=== PATIENT | female | born 1930 | race African-American/Black ===

== ENCOUNTER 2018-04-18 20:33 | Observation (INO) ==
[2018-04-18 21:30] LABS: Baso % (Auto) 0.4 % (0.0-2.0); Eos # (Auto) 0.1 th/mm3 (0.0-0.4); Eos % (Auto) 1.7 % (0.0-4.0); Hematocrit 37.5 % (35.0-46.0); Hemoglobin 12.8 gm/dL (11.6-15.3); Lymph # (Auto) 0.9 th/mm3 (1.0-4.8); Lymph % (Auto) 14.2 % (9.0-44.0); Mean Corpuscular HGB Conc 34.1 % (32.0-36.0); Mean Corpuscular Hemoglobin 31.4 pg (27.0-34.0); Mean Corpuscular Volume 92.2 fL (80.0-100.0); Mean Platelet Volume 8.4 fL (7.0-11.0); Mono # (Auto) 0.7 th/mm3 (0.0-0.9); Neut # (Auto) 4.9 th/mm3 (1.8-7.7); Neut % (Auto) 73.7 % (16.0-70.0); Platelet Count 152 th/mm3 (150-450); Red Blood Count 4.06 mil/mm3 (4.00-5.30); Red Cell Distribution Width 13.2 % (11.6-17.2); White Blood Count 6.6 th/mm3 (4.0-11.0)
--- NOTE | 2018-04-18 21:30 | ED ---
HPI General Chief complaint: Weakness Stated complaint: weakness Time Seen by Provider: 04/18/18 20:59 History of Present Illness HPI narrative: This is an 87-year-old female who presents via EMS for evaluation after fall. EMS reports that the patient was sitting in her kitchen in a chair when she slid out of the chair and fell to the ground. She then vomited. Complaining of generalized weakness to EMS. No focal neurologic complaints. My examination the patient reports that she was sitting in the chair eating when she slid out of the chair and she believes that she lost consciousness. She is complaining of intermittent lower abdominal pain for the past few weeks. At one point she said that she had chest pain but later on she is denying any chest pain. She is a very difficult historian. Her daughter who lives with her arrived shortly after the patient did and she reports that the patient has a history of dementia, diabetes and hypertension. She reports that she fell out of bed last night as well. She is otherwise in her usual state of health. Not aware of any recent illnesses or medication changes. Uncertain who her primary care physician is. Related Data Home Medications Medication Instructions Recorded Confirmed amlodipine 10 mg PO DAILY 04/18/18 04/20/18 aspirin 81 mg PO DAILY 04/18/18 04/20/18 hydrocodone-acetaminophen 7.5 mg PO Q4H PRN 04/18/18 04/20/18 lovastatin 30 mg PO DAILY 04/18/18 04/20/18 omeprazole 20 mg PO DAILY 04/18/18 04/20/18 Previous Rx's Medication Instructions Recorded hydralazine 10 mg PO TID 30 Days #90 tab 04/21/18 insulin glargine [Lantus U-100 5 units SUBCUT DAILY ml 04/21/18 Insulin] levothyroxine [Synthroid] 50 mcg PO 4XW #30 tab 04/21/18 levothyroxine [Synthroid] 50 mcg PO Groves tab 04/21/18 levothyroxine [Synthroid] 75 mcg PO TuThSa 30 Days tab 04/21/18 metoprolol tartrate 12.5 mg PO BID 30 Days #30 tab 04/21/18 Allergies Allergy/AdvReac Type Severity Reaction Status Date / Time No Known Allergies Allergy Severe Uncoded 09/03/03 21:46 Review of Systems ROS: all other systems reviewed are negative [facility] Family History Family History Other Family history unknown Social History Social History Substance History: No History of Abuse Second Hand Smoke Exposure: No Smoking Status: Never smoker Tobacco Type: Cigarettes How Often Do You Have a Drink Containing Alcohol: Never Recent Travel in [facility] within the Last 8 Weeks: No Recent Out of Country Travel within the Last 8 Weeks: No Exam Narrative Exam Narrative: GENERAL: Well-developed well-nourished female who is awake and alert and oriented to person and place but not year. SKIN: Warm and dry. HEAD: Atraumatic. Normocephalic. EYES: Pupils equal and round. No scleral icterus. No injection or drainage. ENT: No nasal bleeding or discharge. Mucous membranes pink and moist. NECK: Trachea midline. No JVD. CARDIOVASCULAR: Regular rate and rhythm. No murmur appreciated. RESPIRATORY: No accessory muscle use. Clear to auscultation. Breath sounds equal bilaterally. GASTROINTESTINAL: Abdomen soft, mild tenderness to palpation in the lower quadrants without guarding. MUSCULOSKELETAL: No obvious deformities. No clubbing. No cyanosis. No edema. Full range of motion of the extremities. NEUROLOGICAL: Awake and alert. No obvious cranial nerve deficits. Motor grossly within normal limits. Normal speech. Course Initial Documented Vital Signs Temperature 98.3 F 04/18/18 20:41 Pulse Rate 45 L 04/18/18 20:41 Respiratory Rate 16 04/18/18 20:41 Blood Pressure 148/68 H 04/18/18 20:41 Pulse Oximetry 98 04/18/18 20:41 Last Documented Vital Signs Temperature 98.3 F 04/21/18 12:00 Pulse Rate 64 04/21/18 12:00 Respiratory Rate 16 04/21/18 12:00 Blood Pressure 149/69 H 04/21/18 12:00 Pulse Oximetry 100 04/21/18 12:00 Critical Care Time Critical Care Time: Yes Total Critical Care Time: 30 Attestation: Aggregate critical care time was 30 minutes. Time to perform other separately billable procedures was not included in the critical care time. My time did not include minutes spent treating any other patients simultaneously or on activities that did not directly contribute to the patient's treatment. The services I provided to this patient were to treat and/or prevent clinically significant deterioration that could result in: ACS, heparin bolus and drip I provided critical care services requiring my management, as noted below: Chart data review, documentation time, medication orders and management, vital sign assessments/reviewing monitor data, ordering and reviewing lab tests, ordering and interpreting/reviewing x-rays and diagnostic studies, care of the patient and discussion of the patient with the admitting physicians. Medical Decision Making NICANOR Attestation NICANOR supervised visit: Yes Attestation: 87-year-old female was brought to the emergency room by EMS after her daughter called 911. As per the daughter patient passed out in the kitchen. She heard a loud thud and went and saw that her mother was on the floor and was vomiting. She appeared to be dazed. That is when she decided to call 911. Daughter says that something similar happened 2 nights prior when she found her mother on the living room floor but at that time she refused to go to the emergency room. She also has noticed that her mother appears to be more sleepy than usual for the past 2 days. Tonight when EMS arrived the daughter noticed that her heart rate was very low. Normally her heart rate is in the 70s. Patient does not complain of any chest pain. My PA is seeing the patient and I am supervising him. Blood test results are back and troponin is elevated. EKG is suggestive of sinus bradycardia. I let the daughter know that patient will require admission and cardiology consultation. She is agreeable with that plan. Patient may require a pacemaker if this is secondary to a sick sinus syndrome or symptomatic bradycardia. The elevated troponin needs to be investigated further as well for ACS. Currently awaiting for CT scan of the head and abdomen and pelvis to be done and resulted. If CT of the head is negative patient will require to be started on heparin bolus and drip. 11:[address] scan of the brain is negative for any intracranial bleed. I started on heparin bolus and drip for the elevated troponin. Awaiting for the hospitalist to call back. [facility] Narrative Medical decision making narrative: The patient was placed on ECG monitoring and pulse oximetry. Twelve-lead EKG was obtained revealing sinus bradycardia with a rate of 45, left axis deviation is noted. There are no acute ST elevations. Lab work, chest x-ray, CT brain and abdomen and pelvis have been ordered. CBC reveals no significant abnormalities. CMP reveals a GFR of 40, BUN 30, creatinine 1.47, glucose 170 CK-MB 3.7, troponin 0 0.21 TSH 6.6 Chest x-ray reveals elevation of the right hemidiaphragm, no acute pulmonary infiltrate or pulmonary vascular congestion. At the end of my shift the patient was signed out to Dr. Taveras pending CT imaging, ultimately she will require admission. Medical Screen Exam Complete: Yes Emergency Medical Condition: Yes Differential Diagnosis Differential Diagnosis: Syncope, arrhythmia, heart block, SSS, electrolyte abnormality, hypoglycemia, dehydration, UTI, orthostatic hypotension Lab Data Result diagrams: 04/20/18 07:15 04/21/18 05:19 Lab Results 04/18/18 04/18/18 04/18/18 Range/Units 21:10 21:10 21:10 WBC 6.6 (4.0-11.0) th/mm3 RBC 4.06 (4.00-5.30) mil/mm3 Hgb 12.8 (11.6-15.3) gm/dL Hct 37.5 (35.0-46.0) % MCV 92.2 (80.0-100.0) fL MCH 31.4 (27.0-34.0) pg MCHC 34.1 (32.0-36.0) % RDW 13.2 (11.6-17.2) % Plt Count 152 (150-450) th/mm3 MPV 8.4 (7.0-11.0) fL Neut % (Auto) 73.7 H (16.0-70.0) % Lymph % (Auto) 14.2 (9.0-44.0) % Cooper % (Auto) 10.0 H (0.0-8.0) % Eos % (Auto) 1.7 (0.0-4.0) % Baso % (Auto) 0.4 (0.0-2.0) % Neut # (Auto) 4.9 (1.8-7.7) th/mm3 Lymph # (Auto) 0.9 L (1.0-4.8) th/mm3 Cooper # (Auto) 0.7 (0.0-0.9) th/mm3 Eos # (Auto) 0.1 (0.0-0.4) th/mm3 Baso # (Auto) 0.0 (0.0-0.2) th/mm3 WBC Differential . Differential Comment Auto diff final PT 10.9 (9.8-11.6) sec INR 1.1 Ratio APTT 22.7 L (23.4-31.7) sec Sodium 141 (136-145) meq/L Potassium 4.1 (3.5-5.1) meq/L Chloride 103 (98-107) meq/L Carbon Dioxide 29.3 (21.0-32.0) meq/L Anion Gap 9 (5-15) meq/L BUN 30 H (7-18) mg/dL Creatinine 1.47 H (0.50-1.00) mg/dL Estimated GFR 40 L (>89) mL/min POC Glucose (68-110) mg/dl Random Glucose 170 H (74-106) mg/dL Calcium 9.2 (8.5-10.1) mg/dL Magnesium 2.1 (1.5-2.5) mg/dL Total Bilirubin 0.3 (0.2-1.0) mg/dL AST 23 (15-37) U/L ALT 25 (10-53) U/L Alkaline Phosphatase 54 (45-117) U/L Total Creatine Kinase 150 (26-192) U/L CK-MB (CK-2) 3.7 H (0.5-3.6) ng/mL Troponin I 0.21 H (0.02-0.05) ng/mL Total Protein 7.1 (6.4-8.2) g/dL Albumin 3.3 L (3.4-5.0) g/dL TSH 6.630 H (0.358-3.740) uIU/mL Urine Color (Yellw/Straw) Urine Clarity (Clear) Urine pH (5.0-8.5) Ur Specific Dillard (1.002-1.035) Urine Protein (Neg-Trace) mg/dL Urine Glucose (UA) (Negative) mg/dL Urine Ketones (Negative) mg/dL Urine Occult Blood (Negative) Urine Nitrate (Negative) Urine Bilirubin (Negative) Urine Urobilinogen (Less than 2) mg/dL Ur Leukocyte Esterase (Negative) Urine RBC (0-3) /hpf Urine WBC (0-5) /hpf Ur Squamous Epith Cells (0-5) /hpf Urine Bacteria (None) /hpf Hyaline Casts (0-3) /lpf Urine Mucus (Occasional) /lpf Micro UA Comment Ur Microscopic Review Urine Culture Comments 04/18/18 04/18/18 04/18/18 Range/Units 21:10 21:10 22:15 WBC (4.0-11.0) th/mm3 RBC (4.00-5.30) mil/mm3 Hgb (11.6-15.3) gm/dL Hct (35.0-46.0) % MCV (80.0-100.0) fL MCH (27.0-34.0) pg MCHC (32.0-36.0) % RDW (11.6-17.2) % Plt Count (150-450) th/mm3 MPV (7.0-11.0) fL Neut % (Auto) (16.0-70.0) % Lymph % (Auto) (9.0-44.0) % Cooper % (Auto) (0.0-8.0) % Eos % (Auto) (0.0-4.0) % Baso % (Auto) (0.0-2.0) % Neut # (Auto) (1.8-7.7) th/mm3 Lymph # (Auto) (1.0-4.8) th/mm3 Cooper # (Auto) (0.0-0.9) th/mm3 Eos # (Auto) (0.0-0.4) th/mm3 Baso # (Auto) (0.0-0.2) th/mm3 WBC Differential Differential Comment PT (9.8-11.6) sec INR Ratio APTT (23.4-31.7) sec Sodium (136-145) meq/L Potassium (3.5-5.1) meq/L Chloride (98-107) meq/L Carbon Dioxide (21.0-32.0) meq/L Anion Gap (5-15) meq/L BUN (7-18) mg/dL Creatinine (0.50-1.00) mg/dL Estimated GFR (>89) mL/min POC Glucose (68-110) mg/dl Random Glucose (74-106) mg/dL Calcium (8.5-10.1) mg/dL Magnesium (1.5-2.5) mg/dL Total Bilirubin (0.2-1.0) mg/dL AST (15-37) U/L ALT (10-53) U/L Alkaline Phosphatase (45-117) U/L Total Creatine Kinase Cancelled (26-192) U/L CK-MB (CK-2) (0.5-3.6) ng/mL Troponin I (0.02-0.05) ng/mL Total Protein (6.4-8.2) g/dL Albumin (3.4-5.0) g/dL TSH Cancelled (0.358-3.740) uIU/mL Urine Color Yellow (Yellw/Straw) Urine Clarity Hazy H (Clear) Urine pH 5.0 (5.0-8.5) Ur Specific Dillard 1.021 (1.002-1.035) Urine Protein 30 H (Neg-Trace) mg/dL Urine Glucose (UA) 50 (Negative) mg/dL Urine Ketones Negative (Negative) mg/dL Urine Occult Blood Negative (Negative) Urine Nitrate Negative (Negative) Urine Bilirubin Negative (Negative) Urine Urobilinogen 2.0 H (Less than 2) mg/dL Ur Leukocyte Esterase Trace H (Negative) Urine RBC 1 (0-3) /hpf Urine WBC 11 H (0-5) /hpf Ur Squamous Epith Cells 6 (0-5) /hpf Urine Bacteria Rare H (None) /hpf Hyaline Casts 20 (0-3) /lpf Urine Mucus Few H (Occasional) /lpf Micro UA Comment Culture indicated Ur Microscopic Review Not Reportable Urine Culture Comments Culture indicated 04/18/18 04/19/18 04/19/18 Range/Units 23:20 03:45 03:45 WBC 7.0 (4.0-11.0) th/mm3 RBC 4.03 (4.00-5.30) mil/mm3 Hgb 12.7 (11.6-15.3) gm/dL Hct 37.3 (35.0-46.0) % MCV 92.6 (80.0-100.0) fL MCH 31.6 (27.0-34.0) pg MCHC 34.1 (32.0-36.0) % RDW 13.1 (11.6-17.2) % Plt Count 159 (150-450) th/mm3 MPV 8.7 (7.0-11.0) fL Neut % (Auto) (16.0-70.0) % Lymph % (Auto) (9.0-44.0) % Cooper % (Auto) (0.0-8.0) % Eos % (Auto) (0.0-4.0) % Baso % (Auto) (0.0-2.0) % Neut # (Auto) (1.8-7.7) th/mm3 Lymph # (Auto) (1.0-4.8) th/mm3 Cooper # (Auto) (0.0-0.9) th/mm3 Eos # (Auto) (0.0-0.4) th/mm3 Baso # (Auto) (0.0-0.2) th/mm3 WBC Differential Differential Comment PT 10.7 (9.8-11.6) sec INR 1.1 Ratio APTT 18.7 L 43.4 H D (23.4-31.7) sec Sodium (136-145) meq/L Potassium (3.5-5.1) meq/L Chloride (98-107) meq/L Carbon Dioxide (21.0-32.0) meq/L Anion Gap (5-15) meq/L BUN (7-18) mg/dL Creatinine (0.50-1.00) mg/dL Estimated GFR (>89) mL/min POC Glucose (68-110) mg/dl Random Glucose (74-106) mg/dL Calcium (8.5-10.1) mg/dL Magnesium (1.5-2.5) mg/dL Total Bilirubin (0.2-1.0) mg/dL AST (15-37) U/L ALT (10-53) U/L Alkaline Phosphatase (45-117) U/L Total Creatine Kinase (26-192) U/L CK-MB (CK-2) (0.5-3.6) ng/mL Troponin I (0.02-0.05) ng/mL Total Protein (6.4-8.2) g/dL Albumin (3.4-5.0) g/dL TSH (0.358-3.740) uIU/mL Urine Color (Yellw/Straw) Urine Clarity (Clear) Urine pH (5.0-8.5) Ur Specific Dillard (1.002-1.035) Urine Protein (Neg-Trace) mg/dL Urine Glucose (UA) (Negative) mg/dL Urine Ketones (Negative) mg/dL Urine Occult Blood (Negative) Urine Nitrate (Negative) Urine Bilirubin (Negative) Urine Urobilinogen (Less than 2) mg/dL Ur Leukocyte Esterase (Negative) Urine RBC (0-3) /hpf Urine WBC (0-5) /hpf Ur Squamous Epith Cells (0-5) /hpf Urine Bacteria (None) /hpf Hyaline Casts (0-3) /lpf Urine Mucus (Occasional) /lpf Micro UA Comment Ur Microscopic Review Urine Culture Comments 04/19/18 04/19/18 04/19/18 Range/Units 03:45 08:03 08:19 WBC (4.0-11.0) th/mm3 RBC (4.00-5.30) mil/mm3 Hgb (11.6-15.3) gm/dL Hct (35.0-46.0) % MCV (80.0-100.0) fL MCH (27.0-34.0) pg MCHC (32.0-36.0) % RDW (11.6-17.2) % Plt Count (150-450) th/mm3 MPV (7.0-11.0) fL Neut % (Auto) (16.0-70.0) % Lymph % (Auto) (9.0-44.0) % Cooper % (Auto) (0.0-8.0) % Eos % (Auto) (0.0-4.0) % Baso % (Auto) (0.0-2.0) % Neut # (Auto) (1.8-7.7) th/mm3 Lymph # (Auto) (1.0-4.8) th/mm3 Cooper # (Auto) (0.0-0.9) th/mm3 Eos # (Auto) (0.0-0.4) th/mm3 Baso # (Auto) (0.0-0.2) th/mm3 WBC Differential Differential Comment PT (9.8-11.6) sec INR Ratio APTT (23.4-31.7) sec Sodium (136-145) meq/L Potassium (3.5-5.1) meq/L Chloride (98-107) meq/L Carbon Dioxide (21.0-32.0) meq/L Anion Gap (5-15) meq/L BUN (7-18) mg/dL Creatinine (0.50-1.00) mg/dL Estimated GFR (>89) mL/min POC Glucose 63 L 59 L (68-110) mg/dl Random Glucose (74-106) mg/dL Calcium (8.5-10.1) mg/dL Magnesium (1.5-2.5) mg/dL Total Bilirubin (0.2-1.0) mg/dL AST (15-37) U/L ALT (10-53) U/L Alkaline Phosphatase (45-117) U/L Total Creatine Kinase 154 (26-192) U/L CK-MB (CK-2) 3.4 (0.5-3.6) ng/mL Troponin I 0.20 H (0.02-0.05) ng/mL Total Protein (6.4-8.2) g/dL Albumin (3.4-5.0) g/dL TSH (0.358-3.740) uIU/mL Urine Color (Yellw/Straw) Urine Clarity (Clear) Urine pH (5.0-8.5) Ur Specific Dillard (1.002-1.035) Urine Protein (Neg-Trace) mg/dL Urine Glucose (UA) (Negative) mg/dL Urine Ketones (Negative) mg/dL Urine Occult Blood (Negative) Urine Nitrate (Negative) Urine Bilirubin (Negative) Urine Urobilinogen (Less than 2) mg/dL Ur Leukocyte Esterase (Negative) Urine RBC (0-3) /hpf Urine WBC (0-5) /hpf Ur Squamous Epith Cells (0-5) /hpf Urine Bacteria (None) /hpf Hyaline Casts (0-3) /lpf Urine Mucus (Occasional) /lpf Micro UA Comment Ur Microscopic Review Urine Culture Comments 04/19/18 04/19/18 04/19/18 Range/Units 09:47 10:49 12:43 WBC (4.0-11.0) th/mm3 RBC (4.00-5.30) mil/mm3 Hgb (11.6-15.3) gm/dL Hct (35.0-46.0) % MCV (80.0-100.0) fL MCH (27.0-34.0) pg MCHC (32.0-36.0) % RDW (11.6-17.2) % Plt Count (150-450) th/mm3 MPV (7.0-11.0) fL Neut % (Auto) (16.0-70.0) % Lymph % (Auto) (9.0-44.0) % Cooper % (Auto) (0.0-8.0) % Eos % (Auto) (0.0-4.0) % Baso % (Auto) (0.0-2.0) % Neut # (Auto) (1.8-7.7) th/mm3 Lymph # (Auto) (1.0-4.8) th/mm3 Cooper # (Auto) (0.0-0.9) th/mm3 Eos # (Auto) (0.0-0.4) th/mm3 Baso # (Auto) (0.0-0.2) th/mm3 WBC Differential Differential Comment PT (9.8-11.6) sec INR Ratio APTT (23.4-31.7) sec Sodium (136-145) meq/L Potassium (3.5-5.1) meq/L Chloride (98-107) meq/L Carbon Dioxide (21.0-32.0) meq/L Anion Gap (5-15) meq/L BUN (7-18) mg/dL Creatinine (0.50-1.00) mg/dL Estimated GFR (>89) mL/min POC Glucose 112 H 152 H (68-110) mg/dl Random Glucose (74-106) mg/dL Calcium (8.5-10.1) mg/dL Magnesium (1.5-2.5) mg/dL Total Bilirubin (0.2-1.0) mg/dL AST (15-37) U/L ALT (10-53) U/L Alkaline Phosphatase (45-117) U/L Total Creatine Kinase 163 (26-192) U/L CK-MB (CK-2) 3.5 (0.5-3.6) ng/mL Troponin I 0.20 H (0.02-0.05) ng/mL Total Protein (6.4-8.2) g/dL Albumin (3.4-5.0) g/dL TSH (0.358-3.740) uIU/mL Urine Color (Yellw/Straw) Urine Clarity (Clear) Urine pH (5.0-8.5) Ur Specific Dillard (1.002-1.035) Urine Protein (Neg-Trace) mg/dL Urine Glucose (UA) (Negative) mg/dL Urine Ketones (Negative) mg/dL Urine Occult Blood (Negative) Urine Nitrate (Negative) Urine Bilirubin (Negative) Urine Urobilinogen (Less than 2) mg/dL Ur Leukocyte Esterase (Negative) Urine RBC (0-3) /hpf Urine WBC (0-5) /hpf Ur Squamous Epith Cells (0-5) /hpf Urine Bacteria (None) /hpf Hyaline Casts (0-3) /lpf Urine Mucus (Occasional) /lpf Micro UA Comment Ur Microscopic Review Urine Culture Comments 04/19/18 04/19/18 04/19/18 Range/Units 13:18 17:07 21:54 WBC (4.0-11.0) th/mm3 RBC (4.00-5.30) mil/mm3 Hgb (11.6-15.3) gm/dL Hct (35.0-46.0) % MCV (80.0-100.0) fL MCH (27.0-34.0) pg MCHC (32.0-36.0) % RDW (11.6-17.2) % Plt Count (150-450) th/mm3 MPV (7.0-11.0) fL Neut % (Auto) (16.0-70.0) % Lymph % (Auto) (9.0-44.0) % Cooper % (Auto) (0.0-8.0) % Eos % (Auto) (0.0-4.0) % Baso % (Auto) (0.0-2.0) % Neut # (Auto) (1.8-7.7) th/mm3 Lymph # (Auto) (1.0-4.8) th/mm3 Cooper # (Auto) (0.0-0.9) th/mm3 Eos # (Auto) (0.0-0.4) th/mm3 Baso # (Auto) (0.0-0.2) th/mm3 WBC Differential Differential Comment PT (9.8-11.6) sec INR Ratio APTT 22.9 L D (23.4-31.7) sec Sodium (136-145) meq/L Potassium (3.5-5.1) meq/L Chloride (98-107) meq/L Carbon Dioxide (21.0-32.0) meq/L Anion Gap (5-15) meq/L BUN (7-18) mg/dL Creatinine (0.50-1.00) mg/dL Estimated GFR (>89) mL/min POC Glucose 215 H 147 H (68-110) mg/dl Random Glucose (74-106) mg/dL Calcium (8.5-10.1) mg/dL Magnesium (1.5-2.5) mg/dL Total Bilirubin (0.2-1.0) mg/dL AST (15-37) U/L ALT (10-53) U/L Alkaline Phosphatase (45-117) U/L Total Creatine Kinase (26-192) U/L CK-MB (CK-2) (0.5-3.6) ng/mL Troponin I (0.02-0.05) ng/mL Total Protein (6.4-8.2) g/dL Albumin (3.4-5.0) g/dL TSH (0.358-3.740) uIU/mL Urine Color (Yellw/Straw) Urine Clarity (Clear) Urine pH (5.0-8.5) Ur Specific Dillard (1.002-1.035) Urine Protein (Neg-Trace) mg/dL Urine Glucose (UA) (Negative) mg/dL Urine Ketones (Negative) mg/dL Urine Occult Blood (Negative) Urine Nitrate (Negative) Urine Bilirubin (Negative) Urine Urobilinogen (Less than 2) mg/dL Ur Leukocyte Esterase (Negative) Urine RBC (0-3) /hpf Urine WBC (0-5) /hpf Ur Squamous Epith Cells (0-5) /hpf Urine Bacteria (None) /hpf Hyaline Casts (0-3) /lpf Urine Mucus (Occasional) /lpf Micro UA Comment Ur Microscopic Review Urine Culture Comments 04/20/18 04/20/18 04/20/18 Range/Units 07:15 07:15 08:47 WBC 6.6 (4.0-11.0) th/mm3 RBC 4.19 (4.00-5.30) mil/mm3 Hgb 13.3 (11.6-15.3) gm/dL Hct 38.9 (35.0-46.0) % MCV 92.8 (80.0-100.0) fL MCH 31.8 (27.0-34.0) pg MCHC 34.3 (32.0-36.0) % RDW 13.3 (11.6-17.2) % Plt Count 188 (150-450) th/mm3 MPV 8.3 (7.0-11.0) fL Neut % (Auto) 68.5 (16.0-70.0) % Lymph % (Auto) 17.1 (9.0-44.0) % Cooper % (Auto) 12.5 H (0.0-8.0) % Eos % (Auto) 1.6 (0.0-4.0) % Baso % (Auto) 0.3 (0.0-2.0) % Neut # (Auto) 4.5 (1.8-7.7) th/mm3 Lymph # (Auto) 1.1 (1.0-4.8) th/mm3 Cooper # (Auto) 0.8 (0.0-0.9) th/mm3 Eos # (Auto) 0.1 (0.0-0.4) th/mm3 Baso # (Auto) 0.0 (0.0-0.2) th/mm3 WBC Differential . Differential Comment Auto diff final PT (9.8-11.6) sec INR Ratio APTT (23.4-31.7) sec Sodium 135 L (136-145) meq/L Potassium 4.3 (3.5-5.1) meq/L Chloride 100 (98-107) meq/L Carbon Dioxide 27.8 (21.0-32.0) meq/L Anion Gap 7 (5-15) meq/L BUN 32 H (7-18) mg/dL Creatinine 1.75 H (0.50-1.00) mg/dL Estimated GFR 33 L (>89) mL/min POC Glucose 236 H (68-110) mg/dl Random Glucose 260 H (74-106) mg/dL Calcium 9.4 (8.5-10.1) mg/dL Magnesium (1.5-2.5) mg/dL Total Bilirubin (0.2-1.0) mg/dL AST (15-37) U/L ALT (10-53) U/L Alkaline Phosphatase (45-117) U/L Total Creatine Kinase (26-192) U/L CK-MB (CK-2) (0.5-3.6) ng/mL Troponin I (0.02-0.05) ng/mL Total Protein (6.4-8.2) g/dL Albumin (3.4-5.0) g/dL TSH (0.358-3.740) uIU/mL Urine Color (Yellw/Straw) Urine Clarity (Clear) Urine pH (5.0-8.5) Ur Specific Dillard (1.002-1.035) Urine Protein (Neg-Trace) mg/dL Urine Glucose (UA) (Negative) mg/dL Urine Ketones (Negative) mg/dL Urine Occult Blood (Negative) Urine Nitrate (Negative) Urine Bilirubin (Negative) Urine Urobilinogen (Less than 2) mg/dL Ur Leukocyte Esterase (Negative) Urine RBC (0-3) /hpf Urine WBC (0-5) /hpf Ur Squamous Epith Cells (0-5) /hpf Urine Bacteria (None) /hpf Hyaline Casts (0-3) /lpf Urine Mucus (Occasional) /lpf Micro UA Comment Ur Microscopic Review Urine Culture Comments 04/20/18 04/20/18 04/20/18 Range/Units 12:52 16:56 20:45 WBC (4.0-11.0) th/mm3 RBC (4.00-5.30) mil/mm3 Hgb (11.6-15.3) gm/dL Hct (35.0-46.0) % MCV (80.0-100.0) fL MCH (27.0-34.0) pg MCHC (32.0-36.0) % RDW (11.6-17.2) % Plt Count (150-450) th/mm3 MPV (7.0-11.0) fL Neut % (Auto) (16.0-70.0) % Lymph % (Auto) (9.0-44.0) % Cooper % (Auto) (0.0-8.0) % Eos % (Auto) (0.0-4.0) % Baso % (Auto) (0.0-2.0) % Neut # (Auto) (1.8-7.7) th/mm3 Lymph # (Auto) (1.0-4.8) th/mm3 Cooper # (Auto) (0.0-0.9) th/mm3 Eos # (Auto) (0.0-0.4) th/mm3 Baso # (Auto) (0.0-0.2) th/mm3 WBC Differential Differential Comment PT (9.8-11.6) sec INR Ratio APTT (23.4-31.7) sec Sodium (136-145) meq/L Potassium (3.5-5.1) meq/L Chloride (98-107) meq/L Carbon Dioxide (21.0-32.0) meq/L Anion Gap (5-15) meq/L BUN (7-18) mg/dL Creatinine (0.50-1.00) mg/dL Estimated GFR (>89) mL/min POC Glucose 174 H 184 H 148 H (68-110) mg/dl Random Glucose (74-106) mg/dL Calcium (8.5-10.1) mg/dL Magnesium (1.5-2.5) mg/dL Total Bilirubin (0.2-1.0) mg/dL AST (15-37) U/L ALT (10-53) U/L Alkaline Phosphatase (45-117) U/L Total Creatine Kinase (26-192) U/L CK-MB (CK-2) (0.5-3.6) ng/mL Troponin I (0.02-0.05) ng/mL Total Protein (6.4-8.2) g/dL Albumin (3.4-5.0) g/dL TSH (0.358-3.740) uIU/mL Urine Color (Yellw/Straw) Urine Clarity (Clear) Urine pH (5.0-8.5) Ur Specific Dillard (1.002-1.035) Urine Protein (Neg-Trace) mg/dL Urine Glucose (UA) (Negative) mg/dL Urine Ketones (Negative) mg/dL Urine Occult Blood (Negative) Urine Nitrate (Negative) Urine Bilirubin (Negative) Urine Urobilinogen (Less than 2) mg/dL Ur Leukocyte Esterase (Negative) Urine RBC (0-3) /hpf Urine WBC (0-5) /hpf Ur Squamous Epith Cells (0-5) /hpf Urine Bacteria (None) /hpf Hyaline Casts (0-3) /lpf Urine Mucus (Occasional) /lpf Micro UA Comment Ur Microscopic Review Urine Culture Comments 04/21/18 04/21/18 04/21/18 Range/Units 03:06 05:19 08:01 WBC (4.0-11.0) th/mm3 RBC (4.00-5.30) mil/mm3 Hgb (11.6-15.3) gm/dL Hct (35.0-46.0) % MCV (80.0-100.0) fL MCH (27.0-34.0) pg MCHC (32.0-36.0) % RDW (11.6-17.2) % Plt Count (150-450) th/mm3 MPV (7.0-11.0) fL Neut % (Auto) (16.0-70.0) % Lymph % (Auto) (9.0-44.0) % Cooper % (Auto) (0.0-8.0) % Eos % (Auto) (0.0-4.0) % Baso % (Auto) (0.0-2.0) % Neut # (Auto) (1.8-7.7) th/mm3 Lymph # (Auto) (1.0-4.8) th/mm3 Cooper # (Auto) (0.0-0.9) th/mm3 Eos # (Auto) (0.0-0.4) th/mm3 Baso # (Auto) (0.0-0.2) th/mm3 WBC Differential Differential Comment PT (9.8-11.6) sec INR Ratio APTT (23.4-31.7) sec Sodium 141 (136-145) meq/L Potassium 4.5 (3.5-5.1) meq/L Chloride 106 (98-107) meq/L Carbon Dioxide 28.6 (21.0-32.0) meq/L Anion Gap 6 (5-15) meq/L BUN 27 H (7-18) mg/dL Creatinine 1.20 H (0.50-1.00) mg/dL Estimated GFR 51 L (>89) mL/min POC Glucose 204 H 156 H (68-110) mg/dl Random Glucose 197 H (74-106) mg/dL Calcium 8.9 (8.5-10.1) mg/dL Magnesium (1.5-2.5) mg/dL Total Bilirubin (0.2-1.0) mg/dL AST (15-37) U/L ALT (10-53) U/L Alkaline Phosphatase (45-117) U/L Total Creatine Kinase (26-192) U/L CK-MB (CK-2) (0.5-3.6) ng/mL Troponin I (0.02-0.05) ng/mL Total Protein (6.4-8.2) g/dL Albumin (3.4-5.0) g/dL TSH (0.358-3.740) uIU/mL Urine Color (Yellw/Straw) Urine Clarity (Clear) Urine pH (5.0-8.5) Ur Specific Dillard (1.002-1.035) Urine Protein (Neg-Trace) mg/dL Urine Glucose (UA) (Negative) mg/dL Urine Ketones (Negative) mg/dL Urine Occult Blood (Negative) Urine Nitrate (Negative) Urine Bilirubin (Negative) Urine Urobilinogen (Less than 2) mg/dL Ur Leukocyte Esterase (Negative) Urine RBC (0-3) /hpf Urine WBC (0-5) /hpf Ur Squamous Epith Cells (0-5) /hpf Urine Bacteria (None) /hpf Hyaline Casts (0-3) /lpf Urine Mucus (Occasional) /lpf Micro UA Comment Ur Microscopic Review Urine Culture Comments 04/21/18 Range/Units 11:59 WBC (4.0-11.0) th/mm3 RBC (4.00-5.30) mil/mm3 Hgb (11.6-15.3) gm/dL Hct (35.0-46.0) % MCV (80.0-100.0) fL MCH (27.0-34.0) pg MCHC (32.0-36.0) % RDW (11.6-17.2) % Plt Count (150-450) th/mm3 MPV (7.0-11.0) fL Neut % (Auto) (16.0-70.0) % Lymph % (Auto) (9.0-44.0) % [place] % (Auto) (0.0-8.0) % Eos % (Auto) (0.0-4.0) % Baso % (Auto) (0.0-2.0) % Neut # (Auto) (1.8-7.7) th/mm3 Lymph # (Auto) (1.0-4.8) th/mm3 [place] # (Auto) (0.0-0.9) th/mm3 Eos # (Auto) (0.0-0.4) th/mm3 Baso # (Auto) (0.0-0.2) th/mm3 WBC Differential Differential Comment PT (9.8-11.6) sec INR Ratio APTT (23.4-31.7) sec Sodium (136-145) meq/L Potassium (3.5-5.1) meq/L Chloride (98-107) meq/L Carbon Dioxide (21.0-32.0) meq/L Anion Gap (5-15) meq/L BUN (7-18) mg/dL Creatinine (0.50-1.00) mg/dL Estimated GFR (>89) mL/min POC Glucose 205 H (68-110) mg/dl Random Glucose (74-106) mg/dL Calcium (8.5-10.1) mg/dL Magnesium (1.5-2.5) mg/dL Total Bilirubin (0.2-1.0) mg/dL AST (15-37) U/L ALT (10-53) U/L Alkaline Phosphatase (45-117) U/L Total Creatine Kinase (26-192) U/L CK-MB (CK-2) (0.5-3.6) ng/mL Troponin I (0.02-0.05) ng/mL Total Protein (6.4-8.2) g/dL Albumin (3.4-5.0) g/dL TSH (0.358-3.740) uIU/mL Urine Color (Yellw/Straw) Urine Clarity (Clear) Urine pH (5.0-8.5) Ur Specific [place] (1.002-1.035) Urine Protein (Neg-Trace) mg/dL Urine Glucose (UA) (Negative) mg/dL Urine Ketones (Negative) mg/dL Urine Occult Blood (Negative) Urine Nitrate (Negative) Urine Bilirubin (Negative) Urine Urobilinogen (Less than 2) mg/dL Ur Leukocyte Esterase (Negative) Urine RBC (0-3) /hpf Urine WBC (0-5) /hpf Ur Squamous Epith Cells (0-5) /hpf Urine Bacteria (None) /hpf Hyaline Casts (0-3) /lpf Urine Mucus (Occasional) /lpf Micro UA Comment Ur Microscopic Review Urine Culture Comments Imaging Data Radiologist's impression: Abdomen/Pelvis CT 04/18/18 20:55 CONCLUSION: 1. No acute CT abnormality in the abdomen or pelvis. 2. 1.6 cm soft tissue density enhancing mass in the superior pole the right kidney concerning for renal cell carcinoma. Outpatient renal mass protocol MRI exam is recommended for further characterization. 3. Elevation of the right hemidiaphragm. 4. 7 mm right renal artery pseudoaneurysm. Generally, sub-2 cm visceral artery aneurysms are not treated. 5. Additional ancillary findings, as above. Chest X-Ray 04/18/18 20:55 CONCLUSION: 1. Elevation of the right hemidiaphragm. 2. No acute focal pulmonary infiltrate or pulmonary vascular congestion. 3. Arthritic changes are noted involving the left shoulder joint with marked subacromial narrowing suggesting rotator cuff pathology. 4. Degenerative changes and scoliosis of the thoracic spine are noted. Head CT 04/18/18 20:55 CONCLUSION: 1. Senescent changes without acute intracranial abnormality. . Carotid Doppler Study 04/19/18 00:00 CONCLUSION: 1. Small amount of atherosclerotic plaquing at the carotid bifurcations. 2. No focal high-grade or hemodynamically significant stenosis. ECG Data Attestation: I personally reviewed and interpreted this ECG as follows: Interpretation: Twelve-lead EKG was reviewed by me. Normal sinus rhythm, bradycardia, left axis deviation, LVH by voltage criteria. Heart rate of 45 bpm per Discharge Plan Discharge Disposition Patient Disposition: ED Admit(ED Internal Use Only) Discharge Condition Condition: Stable Discharge Order Discharge Orders: Discharge Order (Routine); Ordered 04/21/18 Ordered By: Kiley Deras ED Use Only Admit Order (Routine); Ordered 04/18/18 Ordered By: Kirti Taveras Discharge Details Anticipated Discharge Date: 04/21/18 Physicians Team ED Provider: Kirti Taveras ED Midlevel Provider: Asa Lerma Primary Care Provider: Norma Green Attending Provider: Kiley Deras Other Providers: Norma Green ; Greg Gonzalez Status ED Status: Left Department Discharge Information Discharge Date/Time: 04/19/18 03:34
[2018-04-18 21:45] LABS: Activated Partial Thrombo Time 22.7 sec (23.4-31.7); INR 1.1 Ratio; Prothrombin Time 10.9 sec (9.8-11.6)
[2018-04-18 21:47] LABS: Albumin 3.3 g/dL (3.4-5.0); Anion Gap 9 meq/L (5-15); Aspartate Aminotransferase 23 U/L (15-37); Blood Urea Nitrogen 30 mg/dL (7-18); Calcium 9.2 mg/dL (8.5-10.1); Carbon Dioxide 29.3 meq/L (21.0-32.0); Chloride 103 meq/L (98-107); Glomerular Filtration Rate 40 mL/min (>89); Glucose,Random 170 mg/dL (74-106); Magnesium 2.1 mg/dL (1.5-2.5); Potassium 4.1 meq/L (3.5-5.1); Sodium 141 meq/L (136-145)
[2018-04-18 21:48] LABS: Alanine Aminotransferase 25 U/L (10-53)
[2018-04-18 21:59] LABS: Alkaline Phosphatase 54 U/L (45-117); Creatine Kinase 150 U/L (26-192); Total Protein 7.1 g/dL (6.4-8.2); Troponin I 0.21 ng/mL (0.02-0.05)
--- NOTE | 2018-04-18 22:01 | XR ---
EXAM DATE: 04/18/2018 9:52 PM EST AGE/SEX: 87 years / Female INDICATIONS: Chest pain CLINICAL DATA: This is the patient's initial encounter. Patient reports that signs and symptoms have been present for 1 day and indicates a pain score of 0/10. MEDICAL/SURGICAL HISTORY: Hypertension. Diabetes mellitus type II. None. COMPARISON: No prior exams available for comparison. FINDINGS: There is elevation of the right hemidiaphragm. The heart is normal. The pulmonary vascular pattern is normal. The lungs are clear. Arthritic changes are noted involving the left shoulder joint with lauro ed subacromial narrowing suggesting rotator cuff pathology. Degenerative changes and scoliosis of the thoracic spine are noted. CONCLUSION: 1. Elevation of the right hemidiaphragm. 2. No acute focal pulmonary infiltrate or pulmonary vascular congestion. 3. Arthritic changes are noted involving the left shoulder joint with marked subacromial narrowing s uggesting rotator cuff pathology. 4. Degenerative changes and scoliosis of the thoracic spine are noted. Electronically signed by: Jay Mcnamara MD Board Certified Radiologist 04/18/2018 10:00 PM EST
[2018-04-18 22:11] LABS: Creatine Kinase MB 3.7 ng/mL (0.5-3.6)
[2018-04-18 22:26] LABS: Bacteria,Urine Rare /hpf; Bilirubin,Urine Negative (Negative); Clarity,Urine Hazy (Clear); Color,Urine Yellow (Yellw/Straw); Glucose,Urine (UA) 50 mg/dL (Negative); Hyaline Casts,Urine 20 /lpf (0-3); Leukocyte Esterase,Urine Trace (Negative); Mucus,Urine Few /lpf (Occasional); Nitrite,Urine Negative (Negative); Specific Gravity,Urine 1.021 (1.002-1.035); Squamous Epithelial Cell,Urine 6 /hpf (0-5)
--- NOTE | 2018-04-18 23:03 | CT ---
EXAM DATE: 04/18/2018 10:59 PM EST AGE/SEX: 87 years / Female INDICATIONS: Generalized weakness, lethargy. CLINICAL DATA: This is the patient's initial encounter. Patient reports that signs and symptoms have been present for 1 day and indicates a pain score of 0/10. MEDICAL/SURGICAL HISTORY: Chronic renal insufficiency. Diabetes. Hypertension. Hysterectomy. RADIATION DOSE: 56.35 CTDI (mGy) COMPARISON: No prior exams available for comparison. TECHNIQUE: CT of the head without contrast. Using automated exposure control and adjustment of the mA and/or kV according to patient size, radiation dose was kept as low as reasonably achievable to ob tain optimal diagnostic quality images. DICOM format image data is available electronically for revi ew and comparison. FINDINGS: Cerebrum: Moderate diffuse cerebral atrophy. The ventricles are normal for degree of atrophy. Modera te periventricular white matter hypodensities. Nonspecific bilateral basal ganglia calcifications. No evidence of midline shift, mass lesion, hemorrhage or acute infarction. No extraaxial fluid collect ions are seen. Posterior Fossa: The cerebellum and brainstem are intact. The 4th ventricle is midline. The cerebe llopontine angle is unremarkable. Extracranial: The visualized portion of the orbits is intact. Skull: The calvaria is intact. No evidence of skull fracture. CONCLUSION: 1. Senescent changes without acute intracranial abnormality. . Electronically signed by: Nico Lyman MD Board Certified Radiologist 04/18/2018 11:01 PM E
--- NOTE | 2018-04-18 23:08 | CT ---
EXAM DATE: 04/18/2018 11:01 PM EST AGE/SEX: 87 years / Female INDICATIONS: Lower abdominal pain. CLINICAL DATA: This is the patient's initial encounter. Patient reports that signs and symptoms have been present for 2 weeks and indicates a pain score of 5/10. MEDICAL/SURGICAL HISTORY: Chronic renal insufficiency. Diabetes. Hypertension. Hysterectomy. ORAL CONTRAST: No oral contrast ingested. RADIATION DOSE: 7.31 CTDI (mGy) COMPARISON: No prior exams available for comparison. TECHNIQUE: Multiple contiguous axial images were obtained through the abdomen and pelvis following b olus infusion of 48 ml Visipaque 320 (iodixanol) nonionic water-soluble contrast as a single exam d ose. No oral contrast ingested. Using automated exposure control and adjustment of the mA and/or kV according to patient size, radiation dose was kept as low as reasonably achievable to obtain optimal diagnostic quality images. DICOM format image data is available electronically for review and compar pamela. FINDINGS: LOWER LUNGS: Elevation of the right hemidiaphragm. LIVER: The liver has a homogeneous density without space-occupying lesion. There is no dilation of t he biliary tree. SPLEEN: Homogeneous density without enlargement. PANCREAS: Unremarkable without mass or calcification. KIDNEYS: There is a 1.6 cm soft tissue density exophytic mass in the superior pole of the right kidn ey. Multiple subcentimeter hypodense lesions in the kidneys bilaterally are too small to fully charac terize. Kidneys otherwise symmetrical without radiopaque renal calculi or hydronephrosis. ADRENAL GLANDS: Unremarkable. AORTA: Linda-aneurysmal. 7 mm right renal artery pseudoaneurysm. BOWEL/MESENTERY: Small to moderate amount of stool in the rectum. Scattered colonic diverticula with out definitive inflammatory change to suggest diverticulitis. Bowel loops are normal in caliber witho ut evidence for obstruction. Appendix is visualized and normal in appearance. No significant free flu id or drainable fluid collections. No pneumatosis or free air. ABDOMINAL WALL: Intact. RETROPERITONEUM: No evidence of adenopathy in the retrocrural, para-aortic, or deep pelvic regions. BLADDER: Contours are smooth. REPRODUCTIVE: No abnormal masses or calcifications seen. BONY STRUCTURES: Advanced multilevel degenerative spondylosis of the lumbar spine. CONCLUSION: 1. No acute CT abnormality in the abdomen or pelvis. 2. 1.6 cm soft tissue density enhancing mass in the superior pole the right kidney concerning for re nal cell carcinoma. Outpatient renal mass protocol MRI exam is recommended for further characterizati on. 3. Elevation of the right hemidiaphragm. 4. 7 mm right renal artery pseudoaneurysm. Generally, sub-2 cm visceral artery aneurysms are not quentin ated. 5. Additional ancillary findings, as above. Electronically signed by: Nico Lyman MD Board Certified Radiologist 04/18/2018 11:07 PM Esther TORIBIO
[2018-04-18] MEDS ORDERED: Heparin 10,000 UNITS/10 ML Vial (for IV use) IV.PUSH STA (23:11)
[2018-04-18] MEDS ORDERED: Heparin Drip 25,000 UNIT/250 ML BAG IV.CONT PRN (23:11)
[2018-04-18 23:57] LABS: Activated Partial Thrombo Time 18.7 sec (23.4-31.7); INR 1.1 Ratio; Prothrombin Time 10.7 sec (9.8-11.6)
[2018-04-19] MEDS ORDERED: Dextrose 50% in Water 50 ML Vial IV.PUSH PRN (01:07)
[2018-04-19] MEDS ORDERED: Acetaminophen 325 MG Tablet PO PRN (01:07)
--- NOTE | 2018-04-19 03:30 | P.HP ---
History of Present Illness Service: [facility] Primary Care Physician: Norma Herbert History of Present Illness: 87-year-old female with a past medical history significant for dementia, chronic kidney disease, diabetes mellitus and hypertension presents to the emergency department for evaluation of a syncopal episode. The patient is unable to provide me with any information including past medical history or why she is here. Information obtained from ED documentation. The patient was brought to the emergency department by EMS for evaluation after a fall. The patient was reportedly sitting in her kitchen in a chair when she slid out of the chair and fell to the ground. She then vomited. She complained of generalized weakness. No focal neurologic complaints. The patient lives with her daughter who provided additional history to the emergency department. At this time, the patient has no complaints. She denies any chest pain or shortness of breath. No abdominal pain. No nausea/vomiting/diarrhea. No fever /chills. On arrival to the emergency department the patient was found to be in sinus bradycardia with a pulse of 45. Her troponin was elevated at 0.21. Inpatient Certification: I certify that the inpatient services were ordered in accordance with Medicare regulations governing the order. This includes certification that hospital inpatient services are reasonable and necessary and in the case of services not specified as inpatient-only under 42 CFR 419.22(n), that they are appropriately provided as inpatient services in accordance to with the 2-midnight benchmark under 43 CFR 412.3(e) Review of Systems All other systems reviewed negative except as stated in [facility] - History History Provided By: Family Member - Medical History Medical History: Medical History (Last Updated 04/19/18 @ 03:25 by Lily Deleon MD) CKD (chronic kidney disease) Diabetes H/O: hysterectomy Hypertension Surgical history unknown - Family History Family History: Family History (Last Updated 04/19/18 @ 03:25 by Lily Deleon MD) Other Family history unknown - Social History I have reviewed the patient's Social History: Yes - Tobacco History Smoking Status: Never smoker - Alcohol History How Often Do You Have a Drink Containing Alcohol: Never - Substance Use History Substance History: No History of Abuse - Travel History Recent Travel in the [place] Within the Last 8 Weeks: No Recent Travel Out of the Country Within the Last 8 Weeks: No - Immunization History Tetanus Immunization: Unsure Medications and Allergies Active Medications: Active Medications Acetaminophen (Tylenol) 650 mg PO Q4H PRN PRN Reason: Temp > 100.4 Amlodipine Besylate (Norvasc) 10 mg PO DAILY MARY Aspirin (Ecotrin) 81 mg PO DAILY MARY Dextrose (D50w Vial) 50 ml IV.PUSH UNSCH PRN PRN Reason: PER HYPOGLYCEMIA PROTOCOL Glucagon (Glucagon Inj) 1 mg OTHER PRN PRN PRN Reason: for Hypoglycemia Protocol Heparin Sodium/Dextrose (Heparin/D5w 25,000 U/250 Ml) 25,000 unit in 250 mls @ 0 mls/hr IV.CONT TITRATE PRN; Protocol PRN Reason: Per Protocol Last Admin: 04/19/18 00:35 Dose: 800 units/hr, 8 mls/hr Insulin Aspart (Novolog Insulin Correctional Sugar Inj) 0 unit SQ ACHS MARY; Protocol Levothyroxine Sodium (Synthroid) 50 mcg PO DAILY@0600 MARY Ondansetron HCl (Zofran Inj) 4 mg IV.PUSH Q6H PRN PRN Reason: NAUSEA OR VOMITING Pantoprazole Sodium (Protonix) 20 mg PO DAILY MARY Pravastatin Sodium (Pravachol) 30 mg PO DAILY MARY Sodium Chloride (Ns Flush) 2 ml IV.FLUSH BID MARY Sodium Chloride (Ns Flush) 2 ml IV.FLUSH PRN PRN PRN Reason: FLUSH AFTER USING IV ACCESS Allergies Allergy/AdvReac Type Severity Reaction Status Date / Time No Known Allergies Allergy Severe Uncoded 09/03/03 21:46 Home Medications Medication Instructions Recorded Confirmed Type amlodipine 10 mg PO DAILY 04/18/18 04/18/18 History aspirin 81 mg PO DAILY 04/18/18 04/18/18 History hydrocodone-acetaminophen 7.5 mg PO PRN 04/18/18 History insulin glargine [Lantus U-100 24 unit SUBCUT DAILY 04/18/18 04/18/18 History Insulin] levothyroxine 50 mcg PO DAILY 04/18/18 04/18/18 History lovastatin 30 mg PO DAILY 04/18/18 04/18/18 History metformin 500 mg PO BID 04/18/18 04/18/18 History metoprolol tartrate 50 mg PO BID 04/18/18 04/18/18 History omeprazole 20 mg PO DAILY 04/18/18 04/18/18 History quetiapine 50 mg PO DAILY 04/18/18 04/18/18 History Exam Vital signs: Vital Signs 04/18/18 20:41 04/18/18 21:26 04/19/18 01:00 Temperature 98.3 F Pulse Rate 45 L 50 L 58 L Respiratory Rate 16 16 16 Blood Pressure 148/68 H 160/69 H 162/71 H Pulse Oximetry 98 98 100 04/19/18 02:28 Temperature Pulse Rate 57 L Respiratory Rate 16 Blood Pressure 169/78 H Pulse Oximetry 100 Intake & Output 04/18/18 04/18/18 04/19/18 06:59 18:59 06:59 Weight 68.039 kg Narrative: Gen.: No acute distress Head: Normocephalic. Atraumatic. EENT: Pupils equal round and reactive to light. Nose without drainage. Airway intact. Throat without injection. Cardiovascular: Bradycardic. Regular rhythm. No murmurs, rubs or gallops. Respiratory: Lungs clear to auscultation bilaterally. No wheezes or rhonchi. Abdomen: Soft, nontender, nondistended. No peritoneal signs. Musculoskeletal: No gross deformities. No edema. Skin: No obvious rashes or erythema. Neuro: Sensory and motor grossly intact. Cranial nerves II through XII grossly intact. Results - Labs CBC & Chem 7: 04/18/18 21:10 04/18/18 21:10 Labs: Laboratory Results - last 24 hr 04/18/18 04/18/18 04/18/18 21:10 21:10 21:10 WBC 6.6 RBC 4.06 Hgb 12.8 Hct 37.5 MCV 92.2 MCH 31.4 MCHC 34.1 RDW 13.2 Plt Count 152 MPV 8.4 Neut % (Auto) 73.7 H Lymph % (Auto) 14.2 Kings % (Auto) 10.0 H Eos % (Auto) 1.7 Baso % (Auto) 0.4 Neut # (Auto) 4.9 Lymph # (Auto) 0.9 L [place] # (Auto) 0.7 Eos # (Auto) 0.1 Baso # (Auto) 0.0 WBC Differential . Differential Comment Auto diff final PT 10.9 INR 1.1 APTT 22.7 L Sodium 141 Potassium 4.1 Chloride 103 Carbon Dioxide 29.3 Anion Gap 9 BUN 30 H Creatinine 1.47 H Estimated GFR 40 L Random Glucose 170 H Calcium 9.2 Magnesium 2.1 Total Bilirubin 0.3 AST 23 ALT 25 Alkaline Phosphatase 54 Total Creatine Kinase 150 CK-MB (CK-2) 3.7 H Troponin I 0.21 H Total Protein 7.1 Albumin 3.3 L TSH 6.630 H Urine Color Urine Clarity Urine pH Ur Specific [place] Urine Protein Urine Glucose (UA) Urine Ketones Urine Occult Blood Urine Nitrate Urine Bilirubin Urine Urobilinogen Ur Leukocyte Esterase Urine RBC Urine WBC Ur Squamous Epith Cells Urine Bacteria Hyaline Casts Urine Mucus Micro UA Comment Ur Microscopic Review Urine Culture Comments 04/18/18 04/18/18 04/18/18 21:10 21:10 22:15 WBC RBC Hgb Hct MCV MCH MCHC RDW Plt Count MPV Neut % (Auto) Lymph % (Auto) Kings % (Auto) Eos % (Auto) Baso % (Auto) Neut # (Auto) Lymph # (Auto) [place] # (Auto) Eos # (Auto) Baso # (Auto) WBC Differential Differential Comment PT INR APTT Sodium Potassium Chloride Carbon Dioxide Anion Gap BUN Creatinine Estimated GFR Random Glucose Calcium Magnesium Total Bilirubin AST ALT Alkaline Phosphatase Total Creatine Kinase Cancelled CK-MB (CK-2) Troponin I Total Protein Albumin TSH Cancelled Urine Color Yellow Urine Clarity Hazy H Urine pH 5.0 Ur Specific [place] 1.021 Urine Protein 30 H Urine Glucose (UA) 50 Urine Ketones Negative Urine Occult Blood Negative Urine Nitrate Negative Urine Bilirubin Negative Urine Urobilinogen 2.0 H Ur Leukocyte Esterase Trace H Urine RBC 1 Urine WBC 11 H Ur Squamous Epith Cells 6 Urine Bacteria Rare H Hyaline Casts 20 Urine Mucus Few H Micro UA Comment Culture indicated Ur Microscopic Review Not Reportable Urine Culture Comments Culture indicated 04/18/18 23:20 WBC RBC Hgb Hct MCV MCH MCHC RDW Plt Count MPV Neut % (Auto) Lymph % (Auto) Kings % (Auto) Eos % (Auto) Baso % (Auto) Neut # (Auto) Lymph # (Auto) [place] # (Auto) Eos # (Auto) Baso # (Auto) WBC Differential Differential Comment PT 10.7 INR 1.1 APTT 18.7 L Sodium Potassium Chloride Carbon Dioxide Anion Gap BUN Creatinine Estimated GFR Random Glucose Calcium Magnesium Total Bilirubin AST ALT Alkaline Phosphatase Total Creatine Kinase CK-MB (CK-2) Troponin I Total Protein Albumin TSH Urine Color Urine Clarity Urine pH Ur Specific [place] Urine Protein Urine Glucose (UA) Urine Ketones Urine Occult Blood Urine Nitrate Urine Bilirubin Urine Urobilinogen Ur Leukocyte Esterase Urine RBC Urine WBC Ur Squamous Epith Cells Urine Bacteria Hyaline Casts Urine Mucus Micro UA Comment Ur Microscopic Review Urine Culture Comments - Imaging Impressions Abdomen/Pelvis CT 04/18/18 20:55 CONCLUSION: 1. No acute CT abnormality in the abdomen or pelvis. 2. 1.6 cm soft tissue density enhancing mass in the superior pole the right kidney concerning for renal cell carcinoma. Outpatient renal mass protocol MRI exam is recommended for further characterization. 3. Elevation of the right hemidiaphragm. 4. 7 mm right renal artery pseudoaneurysm. Generally, sub-2 cm visceral artery aneurysms are not treated. 5. Additional ancillary findings, as above. Chest X-Ray 04/18/18 20:55 CONCLUSION: 1. Elevation of the right hemidiaphragm. 2. No acute focal pulmonary infiltrate or pulmonary vascular congestion. 3. Arthritic changes are noted involving the left shoulder joint with marked subacromial narrowing suggesting rotator cuff pathology. 4. Degenerative changes and scoliosis of the thoracic spine are noted. Head CT 04/18/18 20:55 CONCLUSION: 1. Senescent changes without acute intracranial abnormality. . Caprini VTE Risk Assessment Caprini VTE Risk Assessment: Moderate/High Risk (score >= 2) Caprini Risk Assessment Model: Point Value = 1 Point Value = 2 Point Value = 3 Point Value = 5 Age 41-60 Minor surgery BMI > 25 kg/m2 Swollen legs Varicose veins or History of unexplained or recurrent spontaneous Oral contraceptives or hormone replacement Sepsis (< 1 month) Serious lung disease, including pneumonia (< 1 month) Abnormal pulmonary function Acute myocardial infarction Congestive heart failure (< 1 month) History of inflammatory bowel disease Medical patient at bed rest Age 61-74 Arthroscopic surgery Major open surgery (> 45 min) Laparoscopic surgery (> 45 min) Malignancy Confined to bed (> 72 hours) Immobilizing plaster cast Central venous access Age >= 75 History of VTE Family history of VTE Factor V Leiden Prothrombin [id number] Lupus anticoagulant Anticardiolipin antibodies Elevated serum homocysteine Heparin-induced thrombocytopenia Other congenital or acquired thrombophilia Stroke (< 1 month) Elective arthroplasty Hip, pelvis, or leg fracture Acute spinal cord injury (< 1 month) Prophylaxis Regimen: Total Risk Factor Score Risk Level Prophylaxis Regimen 0-1 Low Early ambulation 2 Moderate Order ONE of the following: *Sequential Compression Device (SCD) *Heparin 5000 units SQ BID 3-4 Higher Order ONE of the following medications: *Heparin 5000 units SQ TID *Enoxaparin/Lovenox 40 mg SQ daily (WT < 150 kg, CrCl > 30 mL/min) *Enoxaparin/Lovenox 30 mg SQ daily (WT < 150 kg, CrCl > 10-29 mL/min) *Enoxaparin/Lovenox 30 mg SQ BID (WT < 150 kg, CrCl > 30 mL/min) AND/OR *Sequential Compression Device (SCD) 5 or more Highest Order ONE of the following medications: *Heparin 5000 units SQ TID (Preferred with Epidurals) *Enoxaparin/Lovenox 40 mg SQ daily (WT < 150 kg, CrCl > 30 mL/min) *Enoxaparin/Lovenox 30 mg SQ daily (WT < 150 kg, CrCl > 10-29 mL/min) *Enoxaparin/Lovenox 30 mg SQ BID (WT < 150 kg, CrCl > 30 mL/min) AND *Sequential Compression Device (SCD) Assessment and Plan - Plan Assessment/plan: 1. Syncope/bradycardia Loss of consciousness at rest EKG shows sinus bradycardia Holding home metoprolol Carotid ultrasound/echo pending Cardiology consulted, appreciate assistance 2. Elevated troponin Patient's troponin 0.21 EKG as above without signs of ischemia, personally reviewed Heparin bolus and drip started in the ED Serial troponins/EKGs 3. Chronic kidney disease Creatinine 1.47, baseline unknown Monitor renal function 4. Diabetes mellitus Holding home Lantus as patient n.p.o. Sliding-scale insulin Monitor blood glucose 5. Hypertension Continue home amlodipine 6. Hypothyroidism Continue home Synthroid TSH mildly elevated at 6.6 FEN N.p.o. Electrolytes: Monitor and replete as needed Heparin drip
[2018-04-19 04:25] LABS: Hematocrit 37.3 % (35.0-46.0); Hemoglobin 12.7 gm/dL (11.6-15.3); Mean Corpuscular HGB Conc 34.1 % (32.0-36.0); Mean Corpuscular Hemoglobin 31.6 pg (27.0-34.0); Mean Corpuscular Volume 92.6 fL (80.0-100.0); Mean Platelet Volume 8.7 fL (7.0-11.0); Platelet Count 159 th/mm3 (150-450); Red Blood Count 4.03 mil/mm3 (4.00-5.30); Red Cell Distribution Width 13.1 % (11.6-17.2)
[2018-04-19 04:49] LABS: Creatine Kinase 154 U/L (26-192)
[2018-04-19 05:02] LABS: Creatine Kinase MB 3.4 ng/mL (0.5-3.6)
[2018-04-19] MEDS ORDERED: Levothyroxine 50 MCG Tablet PO SCH ×2 (06:00→12:45)
[2018-04-19] MEDS: Insulin NovoLOG Aspart Correctional Sugar Inj SQ SCH ×4 (08:06→21:55)
--- NOTE | 2018-04-19 08:26 | MB ---
cc: Mike Mendoza MD DATE: 04/19/2018 REASON FOR CONSULTATION: Bradycardia, questionable syncope. HISTORY OF PRESENT ILLNESS: The patient is a very pleasant, demented, 87-year-old woman who cannot tell me why she is in the hospital. Per the chart, she was in a chair, slid off, vomited, and perhaps briefly lost consciousness, though again whether there was a true syncopal episode is unclear. She was brought to the emergency department and found to be in sinus bradycardia. Her home metoprolol has been held. Again, the patient is not complaining of any symptoms; however, she was in the corner looking for a bathroom and not aware of her surroundings. PAST MEDICAL HISTORY: Dementia, hypertension, diabetes, hyperlipidemia, CKD. CURRENT MEDICATIONS: Tylenol, Norvasc, Ecotrin, heparin drip, Pravachol, Protonix. ALLERGIES: NO KNOWN DRUG ALLERGIES. PHYSICAL EXAMINATION: VITAL SIGNS: Afebrile, pulse 50, blood pressure 160/69, saturating 90 on room air. GENERAL: Pleasant, elderly woman, disoriented to place and situation. NECK: No JVD. LUNGS: Clear to auscultation bilaterally. CARDIOVASCULAR: Regular rate and rhythm. No significant murmurs appreciated. ABDOMEN: Benign. EXTREMITIES: No edema. DIAGNOSTIC DATA: EKG shows sinus bradycardia with nonspecific ST changes. Sodium 141, potassium 4.1, chloride 103, bicarbonate 29.3, BUN 30, creatinine 1.47, glucose 170. Troponin 0.21, 0.20. INR is 1.1. White count 7.0, hematocrit 37.3, platelets 159. UA showed a possible UTI. IMPRESSION AND PLAN: Questionable syncope. The patient with a possible urinary tract infection, had a questionable syncopal episode with low heart rate while on metoprolol. Metoprolol has been stopped and a culture is pending for her urine. Her heart rate has already increased by my exam and telemetry as her metoprolol has begun to wear off. Certainly given the patient's advanced age and dementia, I would not consider her a pacemaker candidate, particularly given that her heart rate seemed to have improved off of metoprolol. Similarly, her slightly elevated troponin is really indicative of chronic kidney disease and perhaps some hypertension; and without chest pain or ischemic changes on her EKG, not indicative of acute coronary syndrome. I have stopped her heparin drip thusly; and again otherwise, she should be continued on medical therapy. I will sign off at this time. Please call with any further questions. Thank you again for the opportunity to participate in this patient's care. MD ADRIAN Claire/olivier , 08:03 AM , 08:09 AM
[2018-04-19] MEDS ORDERED: Dextrose 5%/NaCl 0.9% Inj 1,000 ML IV.CONT SCH (09:00)
--- NOTE | 2018-04-19 09:27 | US ---
EXAM DATE: 04/19/2018 9:23 AM EST AGE/SEX: 87 years / Female INDICATIONS: Syncope. CLINICAL DATA: This is the patient's initial encounter. Patient reports that signs and symptoms have been present for 1 day and indicates a pain score of 0/10. MEDICAL/SURGICAL HISTORY: Diabetes. Hypertension. Chronic Kidney disease. Hysterectomy. COMPARISON: No prior exams available for comparison. VELOCITY PARAMETERS: ICA/CCA Ratio: Right 1.0 , Left 1.3 ICA: Right 72 cm/sec, Left 92 cm/sec CCA: Right 67 cm/sec, Left 67 cm/sec ECA: Right 42 cm/sec, Left 59 cm/sec Vertebral: Right 47 cm/sec antegrade, Left 77 cm/sec antegrade FINDINGS: Right Carotid: There is a small amount atherosclerotic plaquing at the carotid bifurcation.The wave forms are within normal limits. Left Carotid: There is a small amount of atherosclerotic plaquing at the carotid bifurcation. The wa veforms are within normal limits. Other: None. CONCLUSION: 1. Small amount of atherosclerotic plaquing at the carotid bifurcations. 2. No focal high-grade or hemodynamically significant stenosis. Electronically signed by: Kevin Ruiz MD Board Certified Radiologist 04/19/2018 9:26 AM EST
[2018-04-19] MEDS: Pantoprazole Sodium 20 MG DR Tablet PO SCH (09:57)
[2018-04-19] MEDS: amLODIPine 10 MG Tablet PO SCH (09:57)
--- NOTE | 2018-04-19 11:05 | P.PN ---
Subjective Interval history: awake and alert- upser- - "has not eaten yet" no chest pain states baseline ambulates with a cane/walker Physical Exam Vital signs: Vital Signs 04/18/18 20:41 04/18/18 21:26 04/19/18 01:00 Temperature 98.3 F Pulse Rate 45 L 50 L 58 L Respiratory Rate 16 16 16 Blood Pressure 148/68 H 160/69 H 162/71 H Pulse Oximetry 98 98 100 04/19/18 02:28 04/19/18 04:20 04/19/18 07:31 Temperature Pulse Rate 57 L 63 Respiratory Rate 16 Blood Pressure 169/78 H Pulse Oximetry 100 99 04/19/18 08:00 Temperature 98.7 F Pulse Rate 65 Respiratory Rate 18 Blood Pressure 157/72 H Pulse Oximetry 99 Intake & Output 04/18/18 04/19/18 04/19/18 18:59 06:59 18:59 Weight 68.039 kg Other: Weight On Admission 68.039 kg Narrative: Gen.: No acute distress Head: Normocephalic. Atraumatic. EENT: Pupils equal round and reactive to light. Nose without drainage. Airway intact. Throat without injection. Cardiovascular: rate 70s- Regular rhythm. No murmurs, rubs or gallops. Respiratory: Lungs clear to auscultation bilaterally. No wheezes or rhonchi. Abdomen: Soft, nontender, nondistended. No peritoneal signs. Musculoskeletal: No gross deformities. No edema. Skin: No obvious rashes or erythema. Neuro: Sensory and motor grossly intact. Cranial nerves II through XII grossly intact. Results - Labs CBC & Chem 7: 04/20/18 07:15 04/20/18 07:15 Laboratory Results - last 24 hr 04/18/18 04/18/18 04/18/18 21:10 21:10 21:10 WBC 6.6 RBC 4.06 Hgb 12.8 Hct 37.5 MCV 92.2 MCH 31.4 MCHC 34.1 RDW 13.2 Plt Count 152 MPV 8.4 Neut % (Auto) 73.7 H Lymph % (Auto) 14.2 [place] % (Auto) 10.0 H Eos % (Auto) 1.7 Baso % (Auto) 0.4 Neut # (Auto) 4.9 Lymph # (Auto) 0.[address] [place] # (Auto) 0.7 Eos # (Auto) 0.1 Baso # (Auto) 0.0 WBC Differential . Differential Comment Auto diff final PT 10.9 INR 1.1 APTT 22.7 L Sodium 141 Potassium 4.1 Chloride 103 Carbon Dioxide 29.3 Anion Gap 9 BUN 30 H Creatinine 1.47 H Estimated GFR 40 L POC Glucose Random Glucose 170 H Calcium 9.2 Magnesium 2.1 Total Bilirubin 0.3 AST 23 ALT 25 Alkaline Phosphatase 54 Total Creatine Kinase 150 CK-MB (CK-2) 3.7 H Troponin I 0.21 H Total Protein 7.1 Albumin 3.3 L TSH 6.630 H Urine Color Urine Clarity Urine pH Ur Specific [place] Urine Protein Urine Glucose (UA) Urine Ketones Urine Occult Blood Urine Nitrate Urine Bilirubin Urine Urobilinogen Ur Leukocyte Esterase Urine RBC Urine WBC Ur Squamous Epith Cells Urine Bacteria Hyaline Casts Urine Mucus Micro UA Comment Ur Microscopic Review Urine Culture Comments 04/18/18 04/18/18 04/18/18 21:10 21:10 22:15 WBC RBC Hgb Hct MCV MCH MCHC RDW Plt Count MPV Neut % (Auto) Lymph % (Auto) [place] % (Auto) Eos % (Auto) Baso % (Auto) Neut # (Auto) Lymph # (Auto) [place] # (Auto) Eos # (Auto) Baso # (Auto) WBC Differential Differential Comment PT INR APTT Sodium Potassium Chloride Carbon Dioxide Anion Gap BUN Creatinine Estimated GFR POC Glucose Random Glucose Calcium Magnesium Total Bilirubin AST ALT Alkaline Phosphatase Total Creatine Kinase Cancelled CK-MB (CK-2) Troponin I Total Protein Albumin TSH Cancelled Urine Color Yellow Urine Clarity Hazy H Urine pH 5.0 Ur Specific [place] 1.021 Urine Protein 30 H Urine Glucose (UA) 50 Urine Ketones Negative Urine Occult Blood Negative Urine Nitrate Negative Urine Bilirubin Negative Urine Urobilinogen 2.0 H Ur Leukocyte Esterase Trace H Urine RBC 1 Urine WBC 11 H Ur Squamous Epith Cells 6 Urine Bacteria Rare H Hyaline Casts 20 Urine Mucus Few H Micro UA Comment Culture indicated Ur Microscopic Review Not Reportable Urine Culture Comments Culture indicated 04/18/18 04/19/18 04/19/18 23:20 03:45 03:45 WBC 7.0 RBC 4.03 Hgb 12.7 Hct 37.3 MCV 92.6 MCH 31.6 MCHC 34.1 RDW 13.1 Plt Count 159 MPV 8.7 Neut % (Auto) Lymph % (Auto) [place] % (Auto) Eos % (Auto) Baso % (Auto) Neut # (Auto) Lymph # (Auto) [place] # (Auto) Eos # (Auto) Baso # (Auto) WBC Differential Differential Comment PT 10.7 INR 1.1 APTT 18.7 L 43.4 H D Sodium Potassium Chloride Carbon Dioxide Anion Gap BUN Creatinine Estimated GFR POC Glucose Random Glucose Calcium Magnesium Total Bilirubin AST ALT Alkaline Phosphatase Total Creatine Kinase CK-MB (CK-2) Troponin I Total Protein Albumin TSH Urine Color Urine Clarity Urine pH Ur Specific [place] Urine Protein Urine Glucose (UA) Urine Ketones Urine Occult Blood Urine Nitrate Urine Bilirubin Urine Urobilinogen Ur Leukocyte Esterase Urine RBC Urine WBC Ur Squamous Epith Cells Urine Bacteria Hyaline Casts Urine Mucus Micro UA Comment Ur Microscopic Review Urine Culture Comments 04/19/18 04/19/18 04/19/18 03:45 08:03 08:19 WBC RBC Hgb Hct MCV MCH MCHC RDW Plt Count MPV Neut % (Auto) Lymph % (Auto) [place] % (Auto) Eos % (Auto) Baso % (Auto) Neut # (Auto) Lymph # (Auto) [place] # (Auto) Eos # (Auto) Baso # (Auto) WBC Differential Differential Comment PT INR APTT Sodium Potassium Chloride Carbon Dioxide Anion Gap BUN Creatinine Estimated GFR POC Glucose 63 L 59 L Random Glucose Calcium Magnesium Total Bilirubin AST ALT Alkaline Phosphatase Total Creatine Kinase 154 CK-MB (CK-2) 3.4 Troponin I 0.20 H Total Protein Albumin TSH Urine Color Urine Clarity Urine pH Ur Specific [place] Urine Protein Urine Glucose (UA) Urine Ketones Urine Occult Blood Urine Nitrate Urine Bilirubin Urine Urobilinogen Ur Leukocyte Esterase Urine RBC Urine WBC Ur Squamous Epith Cells Urine Bacteria Hyaline Casts Urine Mucus Micro UA Comment Ur Microscopic Review Urine Culture Comments 04/19/18 09:47 WBC RBC Hgb Hct MCV MCH MCHC RDW Plt Count MPV Neut % (Auto) Lymph % (Auto) [place] % (Auto) Eos % (Auto) Baso % (Auto) Neut # (Auto) Lymph # (Auto) [place] # (Auto) Eos # (Auto) Baso # (Auto) WBC Differential Differential Comment PT INR APTT Sodium Potassium Chloride Carbon Dioxide Anion Gap BUN Creatinine Estimated GFR POC Glucose 112 H Random Glucose Calcium Magnesium Total Bilirubin AST ALT Alkaline Phosphatase Total Creatine Kinase CK-MB (CK-2) Troponin I Total Protein Albumin TSH Urine Color Urine Clarity Urine pH Ur Specific [place] Urine Protein Urine Glucose (UA) Urine Ketones Urine Occult Blood Urine Nitrate Urine Bilirubin Urine Urobilinogen Ur Leukocyte Esterase Urine RBC Urine WBC Ur Squamous Epith Cells Urine Bacteria Hyaline Casts Urine Mucus Micro UA Comment Ur Microscopic Review Urine Culture Comments - Imaging Impressions Abdomen/Pelvis CT 04/18/18 20:55 CONCLUSION: 1. No acute CT abnormality in the abdomen or pelvis. 2. 1.6 cm soft tissue density enhancing mass in the superior pole the right kidney concerning for renal cell carcinoma. Outpatient renal mass protocol MRI exam is recommended for further characterization. 3. Elevation of the right hemidiaphragm. 4. 7 mm right renal artery pseudoaneurysm. Generally, sub-2 cm visceral artery aneurysms are not treated. 5. Additional ancillary findings, as above. Chest X-Ray 04/18/18 20:55 CONCLUSION: 1. Elevation of the right hemidiaphragm. 2. No acute focal pulmonary infiltrate or pulmonary vascular congestion. 3. Arthritic changes are noted involving the left shoulder joint with marked subacromial narrowing suggesting rotator cuff pathology. 4. Degenerative changes and scoliosis of the thoracic spine are noted. Head CT 04/18/18 20:55 CONCLUSION: 1. Senescent changes without acute intracranial abnormality. . Carotid Doppler Study 04/19/18 00:00 CONCLUSION: 1. Small amount of atherosclerotic plaquing at the carotid bifurcations. 2. No focal high-grade or hemodynamically significant stenosis. Assessment and Plan - Plan 87 years old 1. Syncope seocndary to bradycardia Loss of consciousness at rest EKG shows sinus bradycardia HR improved off BB Carotid ultrasound- no significant stenosis/echo pending Cardiology consulted, appreciate assistance 2. Elevated troponin- non specific Patient's troponin 0.21 EKG as above without signs of ischemia 3. Chronic kidney disease Creatinine 1.47, baseline unknown Monitor renal function 4. Hypoglycemia readings - Diabetes mellitus- some low blood sugars high 50- 60s - start diet Holding home Lantus discontinue home Metformin Sliding-scale insulin Monitor blood glucose d/w daughter 5. Hypertension Continue home amlodipine - BB discontinued 6. Hypothyroidism Continue home Synthroid TSH mildly elevated at 6.6 - change synthoid to 50 mcg - M-W-F.Aura, 75 mcg - // -recheck TSH in 6 weeks c/o PCP 7. Incidental right renal mass - OP MRI to better define mass - d/w daughter- in the past was seen by Urology "Dr. Mart- they did US- nothing found" OP referral to urology though PCP Heparin SQ PT eval and treat case management for DC planning- home healthc are= nursing d/w daugfht- primary caregiver- Baseline dementia will set up with a new PCP- Dr. Garcia
[2018-04-19 11:36] LABS: Creatine Kinase 163 U/L (26-192)
--- NOTE | 2018-04-19 11:36 | ECG ---
Date Performed: 04/19/2018 Time Performed: 04:47:03 PTAGE: 87 years EKG: SINUS BRADYCARDIA MARKED LEFT AXIS DEVIATION MODERATE VOLTAGE CRITERIA FOR LVH, CONSIDER NO RMAL VARIANT NONSPECIFIC T-WAVE ABNORMALITY ABNORMAL ECG PREVIOUS TRACING 04/18/18 0.02: Since the previous tracing, no significant change noted DOCTOR: Rashad Guevara Interpretating Date/Time 04/19/2018 11:35:29
--- NOTE | 2018-04-19 11:44 | ECG ---
Date Performed: 04/18/2018 Time Performed: 21:02:20 PTAGE: 87 years EKG: SINUS BRADYCARDIA MARKED LEFT AXIS DEVIATION VOLTAGE CRITERIA FOR LVH NONSPECIFIC T-WAVE AB NORMALITY ABNORMAL ECG PREVIOUS TRACING : 09/15/2003 07.34 Compared to previous tracing, Sinus bradycardia has replace d Sinus tachycardia DOCTOR: Rasahd Guevara Interpretating Date/Time 04/19/2018 11:43:57
[2018-04-19 11:48] LABS: Creatine Kinase MB 3.5 ng/mL (0.5-3.6)
--- NOTE | 2018-04-19 12:09 | P.DCO ---
- Physical Therapy Order: Evaluate and treat - Home Health Nursing Order: Medical education, Signs/symptoms of disease process, Diabetic education , Medication education-adverse effect - Home Health Aide Order: To assist in: art glass setter and meal prep - Engineering Writer Order: To evaluate: Living conditions/environment, Support services Order: To provide: Community services - Case Management Consult Case Management Consult-Home Health: Yes - Certification I have seen patient Sandy Mckeon on 04/19/18. My clinical findings support the need for the requested home health care services because: Medication compliance is questionable, Limited ability to care for self, Need for psychosocial assistance I certify that my clinical findings support that this patient is homebound because: Need for psychosocial assistance
--- NOTE | 2018-04-19 15:53 | ECHRPT ---
Indication: Syncope and collapse CONCLUSIONS Normal left ventricular size and wall thickness. The left ventricular systolic function is normal wi th an estimated ejection fraction in the range of 60-65%. Left ventricular diastolic function parameters a re normal. Trace aortic valve regurgitation. There is moderate tricuspid regurgitation. The estimated pulmonary arterial pressure is 38.5 mmHg. BP: / HR: Rhythm: Sinus MEASUREMENTS (Male / Female) Normal Values Technical Quality:Fair 2D ECHO LV Diastolic Diameter PLAX 3.3 cm 4.2 - 5.9 / 3.9 - 5.3 cm LV Systolic Diameter PLAX 2.2 cm IVS Diastolic Thickness 1.0 cm 0.6 - 1.0 / 0.6 - 0.9 cm LVPW Diastolic Thickness 1.0 cm 0.6 - 1.0 / 0.6 - 0.9 cm LV Relative Wall Thickness 0.6 LVOT Diameter 2.0 cm M-MODE Aortic Root Diameter MM 3.4 cm LA Systolic Diameter MM 2.9 cm LA Ao Ratio MM 0.9 AV Cusp Separation MM 2.3 cm DOPPLER AV Peak Velocity 119.0 cm/s AV Peak Gradient 5.7 mmHg AI Peak Velocity 349.5 cm/s AI Peak Gradient 48.9 mmHg AI Pressure Half Time 886.5 ms LVOT Peak Velocity 72.0 cm/s LVOT Peak Gradient 2.1 mmHg AV Area Cont Eq pk 1.9 cm Mitral E Point Velocity 98.0 cm/s Mitral A Point Velocity 152.0 cm/s Mitral E to A Ratio 0.6 LV E' Lateral Velocity 7.4 cm/s Mitral E to LV E' Lateral Ratio 13.2 LV E' Septal Velocity 5.4 cm/s Mitral E to LV E' Septal Ratio 18.3 TR Peak Velocity 267.0 cm/s TR Peak Gradient 28.5 mmHg Right Atrial Pressure 10.0 mmHg Pulmonary Artery Systolic Pressu 38.5 mmHg Right Ventricular Systolic Press 38.5 mmHg FINDINGS LEFT VENTRICLE Normal left ventricular size and wall thickness. The left ventricular systolic function is normal wi th an estimated ejection fraction in the range of 60-65%. Left ventricular diastolic function parameters a re normal. RIGHT VENTRICLE Normal right ventricular size and systolic function. LEFT ATRIUM The left atrial size is normal. RIGHT ATRIUM The right atrial size is normal. ATRIAL SEPTUM Normal atrial septal thickness without atrial level shunting by limited color doppler interrogation. AORTA The aortic root and proximal ascending aorta are normal in size on limited imaging. MITRAL VALVE Structurally normal mitral valve. No mitral valve stenosis or regurgitation. AORTIC VALVE Trace aortic valve regurgitation. TRICUSPID VALVE There is moderate tricuspid regurgitation. The estimated pulmonary arterial pressure is 38.5 mmHg. PULMONARY VALVE No pulmonary valve regurgitation or stenosis. VESSELS The inferior vena cava is normal in size. PERICARDIUM No pericardial effusion. Gabriele Jackson MD, FACC, [facility] [place] (Electronically Signed) Final Date:19 April 2018 15:51
[2018-04-20] MEDS ORDERED: Levothyroxine 75 MCG Tablet PO SCH (06:00)
[2018-04-20 07:29] LABS: Baso % (Auto) 0.3 % (0.0-2.0); Eos # (Auto) 0.1 th/mm3 (0.0-0.4); Eos % (Auto) 1.6 % (0.0-4.0); Hematocrit 38.9 % (35.0-46.0); Hemoglobin 13.3 gm/dL (11.6-15.3); Lymph # (Auto) 1.1 th/mm3 (1.0-4.8); Lymph % (Auto) 17.1 % (9.0-44.0); Mean Corpuscular HGB Conc 34.3 % (32.0-36.0); Mean Corpuscular Hemoglobin 31.8 pg (27.0-34.0); Mean Corpuscular Volume 92.8 fL (80.0-100.0); Mean Platelet Volume 8.3 fL (7.0-11.0); Mono # (Auto) 0.8 th/mm3 (0.0-0.9); Mono % (Auto) 12.5 % (0.0-8.0); Neut # (Auto) 4.5 th/mm3 (1.8-7.7); Neut % (Auto) 68.5 % (16.0-70.0); Platelet Count 188 th/mm3 (150-450); Red Blood Count 4.19 mil/mm3 (4.00-5.30); Red Cell Distribution Width 13.3 % (11.6-17.2); White Blood Count 6.6 th/mm3 (4.0-11.0)
[2018-04-20 07:55] LABS: Calcium 9.4 mg/dL (8.5-10.1); Carbon Dioxide 27.8 meq/L (21.0-32.0); Potassium 4.3 meq/L (3.5-5.1)
[2018-04-20] MEDS: Pantoprazole Sodium 20 MG DR Tablet PO SCH (08:55)
[2018-04-20] MEDS: amLODIPine 10 MG Tablet PO SCH (08:55)
[2018-04-20] MEDS ORDERED: Sod Chloride 0.9% Inj 1,000 ML IV.CONT SCH (09:15)
--- NOTE | 2018-04-20 09:16 | P.PN ---
Subjective Interval history: already up in chair smiling and interactive denies any pain no nausea or vomiting or pain no diarrhea Physical Exam Vital signs: Vital Signs 04/19/18 11:06 04/19/18 12:00 04/19/18 15:58 Temperature 97.9 F 98.2 F Pulse Rate 51 L 58 L 65 Respiratory Rate 16 18 Blood Pressure 167/74 H 153/78 H Pulse Oximetry 100 99 04/19/18 19:40 04/19/18 19:56 04/19/18 23:28 Temperature 99.1 F 98.5 F Pulse Rate 89 87 76 Respiratory Rate 20 18 Blood Pressure 121/51 L 159/70 H Pulse Oximetry 100 99 04/20/18 04:00 04/20/18 07:39 Temperature 99.4 F 98.3 F Pulse Rate 78 102 H Respiratory Rate 20 16 Blood Pressure 161/81 H 151/73 H Pulse Oximetry 99 100 Intake & Output 04/19/18 04/20/18 04/20/18 18:59 06:59 18:59 Intake Total 46 / 46 480 / 480 Balance 46 / 46 480 / 480 Intake: IV 46 / 46 Heparin/D5W 25,000 U/250 mL 25, 46 / 46 000 unit In 250 ml @ Per Protocol IV.CONT TITRATE PRN Rx #:[id number] Oral 480 / 480 Other: # Voids 1 2 Narrative: Gen.: No acute distress, pleasant, oriented to person, ff all commands Head: Normocephalic. Atraumatic. EENT: Pupils equal round and reactive to light. Cardiovascular: rate 70s- Regular rhythm. Respiratory: Lungs clear to auscultation bilaterally. No wheezes or rhonchi. Abdomen: Soft, nontender, nondistended. No peritoneal signs. Musculoskeletal: No gross deformities. No edema. Skin: No obvious rashes or erythema. Neuro: Sensory and motor grossly intact. Cranial nerves II through XII grossly intact. Results - Labs CBC & Chem 7: 04/20/18 07:15 04/21/18 05:19 Laboratory Results - last 24 hr 04/19/18 04/19/18 04/19/18 09:47 10:49 12:43 WBC RBC Hgb Hct MCV MCH MCHC RDW Plt Count MPV Neut % (Auto) Lymph % (Auto) [place] % (Auto) Eos % (Auto) Baso % (Auto) Neut # (Auto) Lymph # (Auto) [place] # (Auto) Eos # (Auto) Baso # (Auto) WBC Differential Differential Comment APTT Sodium Potassium Chloride Carbon Dioxide Anion Gap BUN Creatinine Estimated GFR POC Glucose 112 H 152 H Random Glucose Calcium Total Creatine Kinase 163 CK-MB (CK-2) 3.5 Troponin I 0.20 H 04/19/18 04/19/18 04/19/18 13:18 17:07 21:54 WBC RBC Hgb Hct MCV MCH MCHC RDW Plt Count MPV Neut % (Auto) Lymph % (Auto) [place] % (Auto) Eos % (Auto) Baso % (Auto) Neut # (Auto) Lymph # (Auto) [place] # (Auto) Eos # (Auto) Baso # (Auto) WBC Differential Differential Comment APTT 22.9 L D Sodium Potassium Chloride Carbon Dioxide Anion Gap BUN Creatinine Estimated GFR POC Glucose 215 H 147 H Random Glucose Calcium Total Creatine Kinase CK-MB (CK-2) Troponin I 04/20/18 04/20/18 04/20/18 07:15 07:15 08:47 WBC 6.6 RBC 4.19 Hgb 13.3 Hct 38.9 MCV 92.8 MCH 31.8 MCHC 34.3 RDW 13.3 Plt Count 188 MPV 8.3 Neut % (Auto) 68.5 Lymph % (Auto) 17.1 [place] % (Auto) 12.5 H Eos % (Auto) 1.6 Baso % (Auto) 0.3 Neut # (Auto) 4.5 Lymph # (Auto) 1.1 [place] # (Auto) 0.8 Eos # (Auto) 0.1 Baso # (Auto) 0.0 WBC Differential . Differential Comment Auto diff final APTT Sodium 135 L Potassium 4.3 Chloride 100 Carbon Dioxide 27.8 Anion Gap 7 BUN 32 H Creatinine 1.75 H Estimated GFR 33 L POC Glucose 236 H Random Glucose 260 H Calcium 9.4 Total Creatine Kinase CK-MB (CK-2) Troponin I - Imaging Impressions Carotid Doppler Study 04/19/18 00:00 CONCLUSION: 1. Small amount of atherosclerotic plaquing at the carotid bifurcations. 2. No focal high-grade or hemodynamically significant stenosis. 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 - creatinine up today Kidneys on CT unreamrkable exvept for incidental right renal mass Creatinine 1.47, baseline unknown Monitor renal function start getle hydration NS Her Metformin was DC on admission- with ANN encourage po fluids- needs to be reminded- with dementia DM type 2 - Hypoglycemia readings - - some low blood sugars high 50- 60s on admission - started diet 04/19 - now with elevated readings - home Lantus was on 24 units daily - restart at lower dose 5 units daily Home Metformin discontinue Sliding-scale insulin Monitor blood glucose d/w daughter 04.19 Hypertension Continue home amlodipine - BB discontinued due to bradycardia Hypothyroidism Continue home Synthroid TSH mildly elevated at 6.6 -change synthoid to 50 mcg - M-W-F.Sun, 75 mcg - // -recheck TSH in 6 weeks c/o PCP Incidental right renal mass - OP MRI to better define mass - d/w daughter- in the past was seen by Urology "Dr. Mart- they did US- nothing found" OP referral to urology though PCP Heparin SQ PT eval and treat case management for DC planning- home healthc are= nursing d/w daugfht- primary caregiver- Baseline dementia will set up with a new PCP- Dr. Garcia
[2018-04-20] MEDS: Insulin NovoLOG Aspart Correctional Sugar Inj SQ SCH ×4 (09:34→20:45)
[2018-04-20] MEDS: Metoprolol Tartrate 25 MG Tablet PO SCH ×2 (19:12→20:42)
[2018-04-21] MEDS ORDERED: Levothyroxine 50 MCG Tablet PO SCH (06:00)
[2018-04-21 06:02] LABS: Calcium 8.9 mg/dL (8.5-10.1); Carbon Dioxide 28.6 meq/L (21.0-32.0); Potassium 4.5 meq/L (3.5-5.1)
[2018-04-21] MEDS: Metoprolol Tartrate 25 MG Tablet PO SCH (08:13)
[2018-04-21] MEDS: amLODIPine 10 MG Tablet PO SCH (08:13)
[2018-04-21] MEDS: Pantoprazole Sodium 20 MG DR Tablet PO SCH (08:14)
[2018-04-21] MEDS: Insulin NovoLOG Aspart Correctional Sugar Inj SQ SCH ×2 (09:31→12:50)
--- NOTE | 2018-04-21 11:55 | P.PN ---
Subjective Interval history: doing great very much awake andalert and oriented x 3 "God bless you, I feel great" no pain complains, no nausea or vomiting, no headaches Physical Exam Vital signs: Vital Signs 04/20/18 12:00 04/20/18 16:00 04/20/18 17:09 Temperature 98.1 F Pulse Rate 102 H 90 Respiratory Rate 18 18 Blood Pressure 148/71 H 184/88 H 168/90 H Pulse Oximetry 99 98 04/20/18 20:00 04/20/18 20:44 04/21/18 00:00 Temperature 98.6 F 98.2 F Pulse Rate 96 H 80 68 Respiratory Rate 20 17 Blood Pressure 135/69 175/81 H Pulse Oximetry 99 99 04/21/18 03:40 04/21/18 03:58 04/21/18 08:00 Temperature 98.5 F 98.0 F Pulse Rate 68 69 Respiratory Rate 16 16 18 Blood Pressure 172/79 H 166/78 H Pulse Oximetry 96 97 Intake & Output 04/20/18 04/21/18 04/21/18 18:59 06:59 18:59 Intake Total 1480 / 1480 Balance 1480 / 1480 Intake: IV 1000 / 1000 NS Inj 1,000 ML @ 70 mls/hr IV. 1000 / 1000 CONT .[id number] MARY Rx#:[id number] Oral 480 / 480 Other: # Voids 2 Narrative: Gen.: No acute distress, pleasant, oriented to person, ff all commands, oriented x 3, speech celar Head: Normocephalic. Atraumatic. EENT: Pupils equal round and reactive to light. Cardiovascular: rate 70s- Regular rhythm. Respiratory: Lungs clear to auscultation bilaterally. No wheezes or rhonchi. Abdomen: Soft, nontender, nondistended. No peritoneal signs. Musculoskeletal: No gross deformities. No edema. Skin: No obvious rashes or erythema. Neuro: Sensory and motor grossly intact. Cranial nerves II through XII grossly intact. Results - Labs CBC & Chem 7: 04/20/18 07:15 04/21/18 05:19 Laboratory Results - last 24 hr 04/20/18 04/20/18 04/20/18 12:52 16:56 20:45 Sodium Potassium Chloride Carbon Dioxide Anion Gap BUN Creatinine Estimated GFR POC Glucose 174 H 184 H 148 H Random Glucose Calcium 04/21/18 04/21/18 04/21/18 03:06 05:19 08:01 Sodium 141 Potassium 4.5 Chloride 106 Carbon Dioxide 28.6 Anion Gap 6 BUN 27 H Creatinine 1.20 H Estimated GFR 51 L POC Glucose 204 H 156 H Random Glucose 197 H Calcium 8.9 Microbiology 04/18/18 22:15 Clean Catch Urine Urine Culture - Final 10-50,000 cfu/mL mixed kathy (probable contaminants) Assessment and Plan - Plan 87 years old with Baseline dementia Syncope seocndary to bradycardia Loss of consciousness at rest EKG shows sinus bradycardia HR improved off BB Carotid ultrasound- no significant stenosis/echo - normal systolic function- no Cardiology consulted, appreciate assistance Elevated troponin- non specific Patient's troponin 0.21 EKG as above without signs of ischemia ANN on Chronic kidney disease likely with DM nephropathy - creatinine improved Kidneys on CT unreamrkable exvept for incidental right renal mass Creatinine 1.47, baseline unknown Monitor renal function Her Metformin was DC on admission- with ANN encourage po fluids- needs to be reminded- with dementia DM type 2 - Hypoglycemia readings - - some low blood sugars high 50- 60s on admission - started diet 04/19 - now with elevated readings - home Lantus was on 24 units daily - restart at lower dose 5 units daily Home Metformin discontinue Sliding-scale insulin Monitor blood glucose d/w daughter . Hypertension Continue home amlodipine LOpressor 12,5 mg po bid- HR improved add Hydralazine 10 mg tid for control Hypothyroidism Continue home Synthroid TSH mildly elevated at 6.6 -change synthoid to 50 mcg - --F.Sun, 75 mcg - // -recheck TSH in 6 weeks c/o PCP Incidental right renal mass - OP MRI to better define mass - d/w daughter- in the past was seen by Urology "Dr. Mart- they did US- nothing found" OP referral to urology though PCP Heparin SQ PT eval and treat case management for DC planning- home healthc are= nursing d/w daugfht- primary caregiver- Baseline dementia- d/w her Seroquel - cut down to 25 mg hs prn will set up with a new PCP- Dr. Garcia
[2018-04-21] MEDS ORDERED: Insulin Detemir Inj 1,000 UNIT/10 ML Vial SQ SCH (12:00)
[2018-04-21] MEDS ORDERED: hydrALAZINE 10 MG Tablet PO SCH (13:00)
[2018-04-25] MEDS ORDERED: Levothyroxine 50 MCG Tablet PO SCH (06:00)
== END 2018-04-21 14:34 | disposition home health service (06) ==
LOC: NEPE 20:33 → NEDA 23:57 → INTOOBSV 04-19 01:07 → NEPGCP 04-19 03:13
PROVIDERS: ADMIT Internal Medicine; ATTEND Internal Medicine
DX: E78.5 Hyperlipidemia, unspecified; Z90.710 Acquired absence of both cervix and uterus; N28.89 Other specified disorders of kidney and ureter; W07.XXXA Fall from chair, initial encounter; R94.6 Abnormal results of thyroid function studies; N18.9 Chronic kidney disease, unspecified; R74.8 Abnormal levels of other serum enzymes; R94.31 Abnormal electrocardiogram [ECG] [EKG]; N17.9 Acute kidney failure, unspecified; E11.649 Type 2 diabetes mellitus with hypoglycemia without coma; R55 Syncope and collapse; F03.90 Unspecified dementia, unspecified severity, without behavioral disturbance, psychotic disturbance, mood disturbance, and anxiety; Z79.4 Long term (current) use of insulin; M41.9 Scoliosis, unspecified; Z79.899 Other long term (current) drug therapy; F17.210 Nicotine dependence, cigarettes, uncomplicated; I12.9 Hypertensive chronic kidney disease with stage 1 through stage 4 chronic kidney disease, or unspecified chronic kidney disease; Z79.82 Long term (current) use of aspirin; E03.9 Hypothyroidism, unspecified
CPT/HCPCS: 70450; 71010; 71045; 74177; 80048; 80053; 81001; 82550; 82552; 82948; 82962; 83735; 84443; 84484; 85025; 85027; 85610; 85730; 87086; 90774; 90784; 93005; 93306; 93880; 96361; 96372; 96374; 97162; 99291; C8952; G0378; G8987; G8988; J1644; J1815; J7030; J7042; Q9967